=== PATIENT | male | born 1990 | race Caucasian/White ===

== ENCOUNTER → 2021-04-03 19:01 | Outpatient (CLI) | payer OTHER, SELFPAY ==
--- NOTE | 2021-04-03 19:07 | DI.MRI.S_ITS ---
PROCEDURE: MR HAND LT WO CON INDICATIONS: PAIN IN LEFT HAND TECHNIQUE: Noncontrast coronal T1 spin echo and T2 fast spin echo with fat saturation, axial proton density fast spin echo and T2 fast spin echo with fat saturation, sagittal T1 spin echo and STIR through the hand and fingers. COMPARISON: None. FINDINGS: Image quality: Excellent. Bones: The bones are normally aligned, without marrow contusions or fractures. No intra-osseous lesions. Soft tissues: Visualized muscles demonstrate normal bulk and internal signal. No intramuscular masses identified. No ganglion cysts. The visualized extensor and flexor tendons appear grossly intact. Underlying the skin fiducial marker the extensor tendon slips appear within normal limits. Muscle signal intensity is within normal limits. There is low-grade extensor carpi radialis brevis tenosynovitis of unknown clinical significance. Degenerative cystic change versus erosions involving the triquetral. IMPRESSION: Overall, no abnormal signal in the area marked by the skin fiducial placed at the base of the dorsal aspect of the 3rd metacarpal. Low-grade extensor carpi radialis brevis tenosynovitis, although unknown clinical significance recommend correlation to exam findings. Dictated by: Rolando Quintero M.D. on 04/06/2021 at 9:15 Approved by: Rolando Quintero M.D. on 04/06/2021 at 9:21
== END ==
PROVIDERS: Referring Provider Nurse Practitioner Family; Visit Provider Nurse Practitioner Family
DX: M79.642 Pain in left hand (principal); M65.842 Other synovitis and tenosynovitis, left hand
CPT/HCPCS: 73218